=== PATIENT | female | born 1990 | race Caucasian/White ===

== ENCOUNTER 2020-07-26 14:18 | Emergency (ER) | payer MEDICAID ==
[~2020-07-26] VITALS: Ht 170.2 cm; Wt 100.0 kg
[2020-07-26 14:37] VITALS: BP 130/81
[2020-07-26 16:56] LABS: BASOPHILS % 0.8 % (0.0-2.0); EOSINOPHILS % 1.7 % (0.0-5.0); HEMATOCRIT. 41.7 % (36.0-48.0); HEMOGLOBIN. 14.3 g/dL (12.0-16.0); LYMPHOCYTES % 24.8 % (20.0-50.0); MEAN CORPUSCULAR HEMOGLOBIN 29.2 pg (28.0-32.0); MEAN CORPUSCULAR VOLUME 85.4 fL (81.0-99.0); MEAN PLATELET VOLUME 9.1 fl (7.4-10.4); MONOCYTES % 6.8 % (2.0-8.0); NEUTROPHILS % 65.9 % (40.0-76.0); PLATELET 288 x1000/uL (130-400); RED BLOOD CELL COUNT 4.88 mill/uL (4.2-5.4)
[2020-07-26 17:05] LABS: CHLORIDE 107 mEq/L (98-107)
[2020-07-26 17:14] LABS: B-HCG QUANTITATIVE 11 mIU/mL (<3)
[2020-07-26 21:16] LABS: CLARITY URINE CLOUDY (CLEAR); COLOR URINE ORANGE (YELLOW); KETONES URINE NEGATIVE (NEGATIVE); LEUKOCYTE ESTERASE URINE 1+ (NEGATIVE); NITRITE URINE NEGATIVE (NEGATIVE); OCCULT BLOOD URINE 3+ (NEGATIVE); PROTEIN URINE 1+ (NEGATIVE); SPECIFIC GRAVITY URINE 1.022 (1.005-1.030); UROBILINOGEN URINE 0.2 E.U./dL (0.2-1.0)
== END 2020-07-26 19:28 | disposition home or self-care (01) ==
LOC: ER 14:18
DX: O03.9 Complete or unspecified spontaneous abortion without complication (principal); Z3A.01 Less than 8 weeks gestation of pregnancy
CPT/HCPCS: 36415; 76801; 80053; 81003; 84702; 85025; 86850; 86900; 99284

== ENCOUNTER 2021-10-03 02:48 | Inpatient (IN) | payer MEDICAID, OTHER ==
[~2021-10-03] VITALS: Ht 165.1 cm; Wt 103.9 kg
[2021-10-03] MEDS ORDERED: LIDOCAINE HCL 1% 20ML VIAL (Pyxis) INJ INFIL SCH (05:30)
[2021-10-03] MEDS ORDERED: BUTORPHANOL TARTRATE 2 MG/ML VIAL IV PRN (05:30)
[2021-10-03] MEDS ORDERED: CARBOPROST TROMETHAMINE 250 MCG/ML AMPUL IM PRN (05:30)
[2021-10-03] MEDS ORDERED: METHYLERGONOVINE MALEATE 0.2 MG/ML IM PRN (05:30)
[2021-10-03] MEDS ORDERED: NALOXONE HCL 0.4 MG/ML 1ML VIAL IM PRN (05:30)
[2021-10-03] MEDS: LACTATED RINGERS 1,000 ML IV SCH ×4 (05:59→23:46)
[2021-10-03] MEDS ORDERED: AMPICILLIN 2GM in NS 100ML 100 ML IV SCH (06:00)
[2021-10-03] MEDS: OXYTOCIN 30 UNITS/500ML NS PMX 500 ML IV SCH (06:35)
[2021-10-03 07:11] LABS: BASOPHILS % 0.4 % (0.0-2.0); EOSINOPHILS % 0.3 % (0.0-5.0); HEMATOCRIT. 39.9 % (36.0-48.0); HEMOGLOBIN. 13.3 g/dL (12.0-16.0); LYMPHOCYTES % 14.6 % (20.0-50.0); MEAN CORPUSCULAR HEMOGLOBIN 27.1 pg (28.0-32.0); MEAN CORPUSCULAR VOLUME 81.4 fL (81.0-99.0); MEAN PLATELET VOLUME 12.1 fl (7.4-10.4); MONOCYTES % 5.6 % (2.0-8.0); NEUTROPHILS % 79.1 % (40.0-76.0); PLATELET 120 x1000/uL (130-400); RED CELL DISTRIBUTION WIDTH 15.7 % (11.6-14.6)
[2021-10-03 07:16] LABS: CHLORIDE 107 mEq/L (98-107)
[2021-10-03 07:19] LABS: INR 0.9; PARTIAL THROMBOPLASTIN TIME 28.2 sec (23.4-31.0); PROTHROMBIN TIME 10.1 sec (9.6-11.0)
[2021-10-03 07:24] LABS: CLARITY URINE CLEAR (CLEAR); COLOR URINE YELLOW (YELLOW); KETONES URINE NEGATIVE (NEGATIVE); LEUKOCYTE ESTERASE URINE 3+ (NEGATIVE); NITRITE URINE NEGATIVE (NEGATIVE); OCCULT BLOOD URINE NEGATIVE (NEGATIVE); PH URINE 6.5 (4.5-8.0); PROTEIN URINE NEGATIVE (NEGATIVE); SPECIFIC GRAVITY URINE 1.005 (1.005-1.030); UROBILINOGEN URINE 0.2 E.U./dL (0.2-1.0)
[2021-10-03 07:35] LABS: *AMPHETAMINES SCREEN URINE NEGATIVE (NEGATIVE); *BARBITURATES SCREEN URINE NEGATIVE (NEGATIVE); *BENZODIAZEPINES SCREEN URINE NEGATIVE (NEGATIVE); *COCAINE SCREEN URINE NEGATIVE (NEGATIVE); CANNABINOID URINE SCREEN NEGATIVE (NEGATIVE); METHADONE URINE SCREEN NEGATIVE (NEGATIVE); OPIATES URINE SCREEN NEGATIVE (NEGATIVE); PHENCYCLIDINE URINE SCREEN NEGATIVE (NEGATIVE)
[2021-10-03 07:46] LABS: HEPATITIS B SURFACE ANTIGEN NEGATIVE
[2021-10-03] MEDS ORDERED: ROPIVACAINE HCL/PF EPIDURAL 200 ML EP SCH (08:30)
[2021-10-03] MEDS ORDERED: ROPIVACAINE HCL/PF EPIDURAL 200 ML EPI SCH (08:45)
[2021-10-03] MEDS ORDERED: METHYLERGONOVINE MALEATE 0.2 MG/ML ONE (12:00)
[2021-10-03] MEDS: AMPICILLIN 1,000 MG in SODIUM CHLORIDE 0.9% 50 ML IV SCH ×2 (13:56→20:30)
[2021-10-03] MEDS ORDERED: ROPIVACAINE HCL/PF EPIDURAL 200 ML EPI ONE (19:02)
[2021-10-03] MEDS ORDERED: FENTANYL CITRATE/PF 50MCG/ML 2ML VIAL ONE (23:45)
[2021-10-04] MEDS: AMPICILLIN 1,000 MG in SODIUM CHLORIDE 0.9% 50 ML IV SCH (01:33)
[2021-10-04] MEDS ORDERED: MINERAL OIL 30ML BOTTLE PO ONE (03:00)
[2021-10-04] MEDS ORDERED: LANOLIN OINT 7GM TUBE TOP PRN (03:30)
[2021-10-04] MEDS ORDERED: BENZOCAINE/LANOLIN/ALOE VERA SPRAY TOP PRN (03:30)
[2021-10-04] MEDS ORDERED: ACETAMINOPHEN WITH CODEINE 300/30MG TABLET PO PRN (03:30)
[2021-10-04] MEDS ORDERED: DIPHENHYDRAMINE 25MG CAPSULE PO PRN (03:30)
[2021-10-04] MEDS ORDERED: IBUPROFEN 400MG TABLET PO PRN (03:30)
[2021-10-04] MEDS ORDERED: GLYCERIN/WITCH HAZEL LEAF MEDICATED PAD TOP PRN (03:30)
[2021-10-04] MEDS ORDERED: OXYTOCIN 30 UNITS/500ML NS PMX 500 ML IV SCH (03:30)
[2021-10-04] MEDS ORDERED: BISACODYL 10MG SUPP PR PRN (03:30)
[2021-10-04] MEDS ORDERED: METHYLERGONOVINE MALEATE 0.2 MG/ML IM PRN (03:30)
[2021-10-04] MEDS ORDERED: HEMORRHOIDAL SUPP PR PRN (03:30)
[2021-10-04] MEDS: OXYTOCIN 30 UNITS/500ML NS PMX 500 ML IV SCH (03:36)
[2021-10-04] MEDS: IBUPROFEN 800MG TABLET PO PRN ×2 (03:52→14:50)
[2021-10-04 05:33] VITALS: BP 106/43
[2021-10-04 08:00] VITALS: BP 97/50
[2021-10-04] MEDS: SIMETHICONE 80MG TABLET CHEW PO SCH ×3 (08:00→20:54)
[2021-10-04] MEDS: PRENATAL VIT/FE FUMARATE/FA TABLET PO SCH (12:50)
[2021-10-04 15:58] VITALS: BP 102/51
[2021-10-04 20:00] VITALS: BP 102/58
[2021-10-04] MEDS: DOCUSATE SODIUM 100MG CAPSULE PO SCH (20:53)
[2021-10-05 04:00] VITALS: BP 90/50
[2021-10-05 07:39] LABS: BASOPHILS % 0.5 % (0.0-2.0); EOSINOPHILS % 0.5 % (0.0-5.0); HEMATOCRIT. 29.3 % (36.0-48.0); HEMOGLOBIN. 9.7 g/dL (12.0-16.0); LYMPHOCYTES % 16.6 % (20.0-50.0); MEAN CORPUSCULAR HEMOGLOBIN 27.6 pg (28.0-32.0); MEAN CORPUSCULAR VOLUME 83.5 fL (81.0-99.0); MEAN PLATELET VOLUME 11.5 fl (7.4-10.4); MONOCYTES % 5.9 % (2.0-8.0); NEUTROPHILS % 76.5 % (40.0-76.0); PLATELET 106 x1000/uL (130-400); RED BLOOD CELL COUNT 3.51 mill/uL (4.2-5.4); RED CELL DISTRIBUTION WIDTH 15.9 % (11.6-14.6)
[2021-10-05 07:45] VITALS: BP 96/44
[2021-10-05] MEDS: SIMETHICONE 80MG TABLET CHEW PO SCH ×2 (08:00→08:11)
[2021-10-05] MEDS: IBUPROFEN 800MG TABLET PO PRN (08:11)
[2021-10-05] MEDS: FERROUS SULFATE 325MG TABLET PO SCH (08:11)
[2021-10-05] MEDS: PRENATAL VIT/FE FUMARATE/FA TABLET PO SCH (08:11)
[2021-10-05 16:30] VITALS: BP 99/54
[2021-10-05] MEDS: DOCUSATE SODIUM 100MG CAPSULE PO SCH (20:41)
[2021-10-05 22:00] VITALS: BP 97/42
[2021-10-06 04:00] VITALS: BP 104/48
[2021-10-06] MEDS ORDERED: IBUP-2030 PO (05:47)
[2021-10-06 08:00] VITALS: BP 99/40
[2021-10-06] MEDS: SIMETHICONE 80MG TABLET CHEW PO SCH (08:00)
[2021-10-06] MEDS: FERROUS SULFATE 325MG TABLET PO SCH (09:49)
[2021-10-06] MEDS: PRENATAL VIT/FE FUMARATE/FA TABLET PO SCH (09:49)
== END 2021-10-06 12:20 | disposition home or self-care (01) | DRG 560 ==
LOC: OBSVTOIN 02:48 → 8 EST LDRP 02:48 → 8EST 10-04 04:49
PROVIDERS: ADMIT Obstetrics & Gynecology; ATTEND Obstetrics & Gynecology
PROC: 10E0XZZ Delivery of Products of Conception, External Approach (ICD-10-PCS; principal; 2021-10-04)
PROC: 0W8NXZZ Division of Female Perineum, External Approach (ICD-10-PCS; 2021-10-04)
PROC: 3E0R3BZ Introduction of Anesthetic Agent into Spinal Canal, Percutaneous Approach (ICD-10-PCS; 2021-10-04)
PROC: 00HU33Z Insertion of Infusion Device into Spinal Canal, Percutaneous Approach (ICD-10-PCS; 2021-10-04)
DX: O48.0 Post-term pregnancy (principal); Z37.0 Single live birth; O24.420 Gestational diabetes mellitus in childbirth, diet controlled; O99.214 Obesity complicating childbirth; O32.1XX0 Maternal care for breech presentation, not applicable or unspecified; O77.0 Labor and delivery complicated by meconium in amniotic fluid; Z20.822 Contact with and (suspected) exposure to COVID-19; O99.824 Streptococcus B carrier state complicating childbirth; Z3A.41 41 weeks gestation of pregnancy; Z83.3 Family history of diabetes mellitus; Z82.49 Family history of ischemic heart disease and other diseases of the circulatory system
CPT/HCPCS: 36415; 80053; 80305; 81003; 85025; 86592; 86703; 86762; 86850; 86900; 87340; 87426; 99281; G0378; J0290; J2210; J2795; J3010; J7120; J2590